=== PATIENT | female | born 1950 | race Caucasian/White ===

== ENCOUNTER 2018-04-22 18:53 | Inpatient (IN) | payer OTHER, MEDICAID ==
[~2018-04-22] VITALS: Ht 165.1 cm; Wt 78.9 kg
[2018-04-22] MEDS ORDERED: MORPHINE SULFATE 4 MG/ML CPJ (NOT FOR IM USE) IV STA (21:17)
[2018-04-22] MEDS ORDERED: ONDANSETRON HCL 4MG/2ML INJ IV STA (21:17)
[2018-04-22] MEDS ORDERED: SODIUM CHLORIDE 0.9% 1,000 ML IV ONE (21:17)
[2018-04-22 23:07] LABS: BASOPHILS % 0.2 % (0.0-2.0); EOSINOPHILS % 0.2 % (0.0-5.0); HEMATOCRIT. 39.2 % (36.0-48.0); HEMOGLOBIN. 13.3 g/dL (12.0-16.0); LYMPHOCYTES % 12.6 % (20.0-50.0); MEAN CORPUSCULAR HEMOGLOBIN 29.4 pg (28.0-32.0); MEAN PLATELET VOLUME 7.9 fl (7.4-10.4); MONOCYTES % 6.2 % (2.0-8.0); NEUTROPHILS % 80.8 % (40.0-76.0); PLATELET 210 x1000/uL (130-400); RED BLOOD CELL COUNT 4.51 mill/uL (4.2-5.4); RED CELL DISTRIBUTION WIDTH 13.1 % (11.6-14.6)
[2018-04-22 23:09] LABS: CHLORIDE 101 mEq/L (98-107)
[2018-04-22 23:13] LABS: INR 1.1; PARTIAL THROMBOPLASTIN TIME 26.1 sec (23.4-31.0); PROTHROMBIN TIME 10.6 sec (9.1-11.1)
[2018-04-23] MEDS ORDERED: ASPIRIN 81MG TABLET PO ONE (00:30)
[2018-04-23] MEDS ORDERED: POTASSIUM CHLORIDE 20MEQ TABLET SR PO ONE (00:30)
[2018-04-23 02:06] LABS: CLARITY URINE CLEAR (CLEAR); COLOR URINE YELLOW (YELLOW); KETONES URINE TRACE (NEGATIVE); LEUKOCYTE ESTERASE URINE TRACE (NEGATIVE); NITRITE URINE NEGATIVE (NEGATIVE); OCCULT BLOOD URINE NEGATIVE (NEGATIVE); PH URINE 5.5 (4.5-8.0); PROTEIN URINE NEGATIVE (NEGATIVE); SPECIFIC GRAVITY URINE 1.019 (1.005-1.030); UROBILINOGEN URINE 0.2 E.U./dL (0.2-1.0)
[2018-04-23] MEDS ORDERED: MORPHINE SULFATE 4 MG/ML CPJ (NOT FOR IM USE) IV NR (05:15)
[2018-04-23] MEDS ORDERED: HYDRALAZINE 20MG/ML VIAL IV PRN (05:30)
[2018-04-23] MEDS ORDERED: DIPHENHYDRAMINE 50MG/ML VIAL IV PRN (05:30)
[2018-04-23] MEDS ORDERED: ACETAMINOPHEN 325MG TABLET PO PRN (05:30)
[2018-04-23] MEDS ORDERED: GUAIFENESIN 200MG/10ML SUGAR FREE UDC PO PRN (05:30)
[2018-04-23] MEDS ORDERED: MAGNESIUM/ALUMINUM HYDROXIDE/SIMETHICONE 30ML UDC PO PRN (05:30)
[2018-04-23] MEDS ORDERED: NA PHOS,M-B/NA PHOS,DI-BA ENEMA 118ML PR PRN (05:30)
[2018-04-23] MEDS ORDERED: CLONIDINE 0.1MG TABLET PO PRN (05:30)
[2018-04-23] MEDS ORDERED: LORAZEPAM 2MG/ML CPJ IV PRN (05:30)
[2018-04-23] MEDS ORDERED: IPRATROPIUM/ALBUTEROL 0.5-3(2.5)MG/3ML NEB INH PRN (05:30)
[2018-04-23 10:00] VITALS: BP 123/68
[2018-04-23] MEDS: HYDROMORPHONE HCL/PF 2MG/ML CPJ IV PRN ×2 (10:34→19:54)
[2018-04-23] MEDS ORDERED: ENOXAPARIN 30MG/0.3ML SYR SUBCUT SCH (11:00)
[2018-04-23 11:03] VITALS: BP 123/68
[2018-04-23] MEDS ORDERED: NAPR220C15 PO (11:31)
[2018-04-23] MEDS ORDERED: LOSA1TAB34 MT (11:31)
[2018-04-23] MEDS ORDERED: ASPI-1159 MT (11:31)
[2018-04-23 12:00] VITALS: BP 133/60
[2018-04-23] MEDS: SODIUM CHLORIDE 0.9% INJ 3ML FLUSH IVF SCH ×2 (13:41→23:32)
[2018-04-23] MEDS: HYDROCODONE/ACETAMINOPHEN 10/325MG TABLET PO PRN ×2 (13:41→17:44)
[2018-04-23] MEDS: DEXT 5%/0.45% NACL 1000ML 1,000 ML IV SCH ×2 (13:42→23:35)
[2018-04-23 16:00] VITALS: BP 139/68
[2018-04-23 16:15] LABS: CREATINE KINASE MB FRACTION 1.7 ng/mL (0.5-3.6)
[2018-04-23] MEDS ORDERED: PNEUMOCOCCAL 23-VAL P-SAC VAC 0.5 ML IM ONE (16:30)
[2018-04-23] MEDS ORDERED: INFLUENZA VIRUS VACCINE(AFLURIA) 0.5ML SYR IM ONE (16:30)
[2018-04-23 20:00] VITALS: BP 153/69
[2018-04-24] VITALS: BP 122/58
[2018-04-24] MEDS: HYDROMORPHONE HCL/PF 2MG/ML CPJ IV PRN ×3 (02:40→13:42)
[2018-04-24] MEDS: ONDANSETRON HCL 4MG/2ML INJ IV PRN ×2 (02:54→20:16)
[2018-04-24 04:00] VITALS: BP 121/55
[2018-04-24] MEDS: SODIUM CHLORIDE 0.9% INJ 3ML FLUSH IVF SCH ×3 (05:17→21:30)
[2018-04-24 07:21] LABS: CHLORIDE 100 mEq/L (98-107)
[2018-04-24 07:34] LABS: LDL CHOLESTEROL 70 mg/dL (5-100)
[2018-04-24 07:35] LABS: T4 FREE 1.23 ng/dL (0.76-1.46)
[2018-04-24 07:37] LABS: HDL CHOLESTEROL 58 mg/dL (40-59)
[2018-04-24 08:13] VITALS: BP 130/54
[2018-04-24 08:14] LABS: BASOPHILS % 0.3 % (0.0-2.0); EOSINOPHILS % 0.1 % (0.0-5.0); HEMATOCRIT. 34.2 % (36.0-48.0); HEMOGLOBIN. 11.4 g/dL (12.0-16.0); LYMPHOCYTES % 11.2 % (20.0-50.0); MEAN CORPUSCULAR HEMOGLOBIN 29.3 pg (28.0-32.0); MEAN CORPUSCULAR VOLUME 87.6 fL (81.0-99.0); MEAN PLATELET VOLUME 8.5 fl (7.4-10.4); MONOCYTES % 10.4 % (2.0-8.0); PLATELET 184 x1000/uL (130-400); RED CELL DISTRIBUTION WIDTH 13.2 % (11.6-14.6)
[2018-04-24] MEDS: ASPIRIN 81MG EC TABLET PO SCH (08:33)
[2018-04-24] MEDS: ENOXAPARIN 40MG/0.4ML SYR SUBCUT SCH (08:34)
[2018-04-24] MEDS ORDERED: POTASSIUM CHLORIDE 20MEQ TABLET SR PO NR (09:45)
[2018-04-24] MEDS: DOCUSATE SODIUM 100MG CAPSULE PO PRN (09:56)
[2018-04-24] MEDS: METOPROLOL TARTRATE 25MG TABLET PO SCH ×2 (09:56→21:30)
[2018-04-24] MEDS: HYDROCODONE/ACETAMINOPHEN 10/325MG TABLET PO PRN (11:04)
[2018-04-24 12:00] VITALS: BP 129/60
[2018-04-24 16:00] VITALS: BP 117/61
[2018-04-24] MEDS: HYDROCODONE/ACETAMINOPHEN 5/325MG TABLET PO PRN ×2 (16:26→21:36)
[2018-04-24 20:00] VITALS: BP 129/52
[2018-04-25] VITALS (8 sets, daily range): BP systolic 103–139; BP diastolic 46–64
[2018-04-25] MEDS: HYDROMORPHONE HCL/PF 2MG/ML CPJ IV PRN ×2 (00:53→12:02)
[2018-04-25] MEDS: HYDROCODONE/ACETAMINOPHEN 10/325MG TABLET PO PRN ×4 (04:37→21:34)
[2018-04-25] MEDS: DOCUSATE SODIUM 100MG CAPSULE PO PRN (08:33)
[2018-04-25] MEDS: ASPIRIN 81MG EC TABLET PO SCH (08:33)
[2018-04-25] MEDS: ENOXAPARIN 40MG/0.4ML SYR SUBCUT SCH (08:33)
[2018-04-25] MEDS: METOPROLOL TARTRATE 25MG TABLET PO SCH ×2 (08:34→21:31)
[2018-04-25 14:22] LABS: CHLORIDE 101 mEq/L (98-107)
[2018-04-25 14:25] LABS: BASOPHILS % 0.3 % (0.0-2.0); EOSINOPHILS % 0.4 % (0.0-5.0); HEMATOCRIT. 32.6 % (36.0-48.0); LYMPHOCYTES % 15.5 % (20.0-50.0); MEAN CORPUSCULAR HEMOGLOBIN 29.4 pg (28.0-32.0); MEAN CORPUSCULAR VOLUME 86.8 fL (81.0-99.0); MEAN PLATELET VOLUME 8.7 fl (7.4-10.4); MONOCYTES % 12.6 % (2.0-8.0); NEUTROPHILS % 71.2 % (40.0-76.0); PLATELET 177 x1000/uL (130-400); RED BLOOD CELL COUNT 3.75 mill/uL (4.2-5.4); RED CELL DISTRIBUTION WIDTH 13.3 % (11.6-14.6)
== END 2018-04-25 22:17 | disposition home or self-care (01) | DRG 190 ==
LOC: ER 18:53 → 5WST 04-23 00:36 → EDBEDREQTM 04-23 00:38 → EDBEDREQ 04-23 00:38 → ENRESERV 04-23 07:06
PROVIDERS: ADMIT Internal Medicine; ATTEND Internal Medicine
DX: I21.4 Non-ST elevation (NSTEMI) myocardial infarction (principal); S72.421A Displaced fracture of lateral condyle of right femur, initial encounter for closed fracture; I11.9 Hypertensive heart disease without heart failure; S82.041A Displaced comminuted fracture of right patella, initial encounter for closed fracture; W01.0XXA Fall on same level from slipping, tripping and stumbling without subsequent striking against object, initial encounter; Y93.89 Activity, other specified; Y92.89 Other specified places as the place of occurrence of the external cause; Y99.8 Other external cause status
CPT/HCPCS: 36415; 71045; 73502; 73552; 73562; 73590; 73700; 80048; 80061; 82550; 82553; 83880; 84439; 84443; 84484; 86850; 86900; 90686; 90732; 93005; 93306; 96374; 96375; 97162; 97530; 99291; J1170; J1650; J2270; J2405; J7030; J7070; L1830